=== PATIENT | male | born 1980 | race Two or more races ===

== ENCOUNTER 2022-08-03 06:19 | Day surgery (SDC) | payer OTHER ==
[~2022-08-03] VITALS: Ht 170.2 cm; Wt 76.2 kg
[2022-08-03] MEDS ORDERED: PERCOCET 5-3251 EACH PO (09:36)
[2022-08-03] MEDS ORDERED: RECTICARE30 GM TOP ×2 (09:37→09:39)
== END 2022-08-03 16:15 | disposition home or self-care (01) ==
LOC: CIR.AMB 06:19
PROVIDERS: ATTEND Surgery
DX: K64.2 Third degree hemorrhoids (principal); Z20.822 Contact with and (suspected) exposure to COVID-19

== ENCOUNTER 2022-09-20 08:16 | Outpatient (CLI) | payer OTHER ==
[~2022-09-20 08:16] MED LIST: PERCOCET 5-3251 EACH PO; RECTICARE30 GM TOP
== END 2022-09-20 08:17 | disposition home or self-care (01) ==
LOC: LAB 08:16
PROVIDERS: ATTEND Obstetrics & Gynecology
DX: Z20.828 Contact with and (suspected) exposure to other viral communicable diseases (principal); Z20.818 Contact with and (suspected) exposure to other bacterial communicable diseases